=== PATIENT | female | born 1985 | race Caucasian/White ===

== ENCOUNTER → 2017-12-17 | Outpatient (CLI) | payer BC ==
--- NOTE | 2017-12-17 15:58 | US ---
EXAMINATION TYPE: US abdomen complete DATE OF EXAM: 12/17/2017 COMPARISON: CT 2013 CLINICAL HISTORY: R10.84 abdominal pain K80 Cholelithiasis. Intermittent RUQ pain and nausea x 1 yea r, gotten worse in past 2 days, history of cholelithiasis EXAM MEASUREMENTS: Liver Length: 12.3 cm Gallbladder Wall: 0.2 cm CBD: 0.8 cm Spleen: 7.8 cm Right Kidney: 9.6 x 5.0 x 5.2 cm Left Kidney: 10.1 x 4.8 x 4.6 cm Pancreas: obscured by overlying midline bowel gas Liver: wnl Gallbladder: appears to be 2 large echogenic shadowing foci with larger one measuring 2.2cm, wall me asures wnl Evidence for sonographic Ludwig's sign: yes CBD: dilated at 0.8cm Spleen: visualized portions wnl, limited by rib shadowing and overlying bowel gas Right Kidney: no hydro or masses seen Left Kidney: no hydro or masses seen Upper IVC: wnl Abd Aorta: visualized portions wnl, limited by overlying midline bowel gas Kidneys show normal cortical medullary differentiation. There is no ascites. IMPRESSION: Cholelithiasis. Dilated common bile duct. Suggest gastroenterology for surgical consult. Limited exam. A Yellow level critical message alert has been initiated for Ofelia Wu MD via the [facility] Critical Results System on 12/17/2017 3:56 PM. This message alert has been sent to Ofelia ken MD via the preferences provided by the clinician for the receipt of Radiology Critical Findings. Message ID [id number].
== END | disposition home or self-care (01) ==
LOC: RADUSWWP 14:31
PROVIDERS: ATTEND Family Medicine
DX: K80.20 Calculus of gallbladder without cholecystitis without obstruction (principal); K83.8 Other specified diseases of biliary tract
CPT/HCPCS: 76700

== ENCOUNTER → 2017-12-20 | Outpatient (CLI) | payer BC ==
[2017-12-20 11:13] LABS: Basophils % (A) 0 %; Eosinophils # (A) 0.4 k/uL (0-0.7); Eosinophils % (A) 5 %; HGB 14.5 gm/dL (11.4-16.0); Lymphocytes # (A) 2.5 k/uL (1.0-4.8); Lymphocytes % (A) 35 %; MCH 29.9 pg (25.0-35.0); MCHC 34.5 g/dL (31.0-37.0); MCV 86.8 fL (80.0-100.0); Mean Platelet Volume 6.6; Monocytes # (A) 0.3 k/uL (0-1.0); Monocytes % (A) 5 %; Neutrophils # (A) 3.9 k/uL (1.3-7.7); Neutrophils % (A) 53 %; Platelet Count 252 k/uL (150-450); RBC 4.84 m/uL (3.80-5.40); WBC 7.3 k/uL (3.8-10.6)
[2017-12-20 15:21] LABS: Albumin 3.8 g/dL (3.5-5.0); Bilirubin, Delta 0.2 mg/dL (0.0-0.2); Bilirubin,Unconjugated 0.1 mg/dL (0.0-1.1); Total Bilirubin 0.3 mg/dL (0.2-1.3); Total Protein 6.7 g/dL (6.3-8.2)
== END | disposition home or self-care (01) ==
LOC: LABPAT 10:33
PROVIDERS: ATTEND Surgery
DX: Z01.812 Encounter for preprocedural laboratory examination (principal); K80.20 Calculus of gallbladder without cholecystitis without obstruction
CPT/HCPCS: 36415; 80076; 82150; 83690; 85025

== ENCOUNTER 2017-12-31 07:50 | Day surgery (SDC) | payer BC ==
[~2017-12-31 07:50] MED LIST: DEXAMETHASONE SOD PHOSPHATE 10 MG/ML 1 ML VIAL IV ONE; LACTATED RINGERS 1,000 ML IV SCH; MIDAZOLAM 2 MG/2 ML VIAL IV PRN; MORPHINE SULFATE 4MG/4ML SYRG IV PRN; ONDANSETRON 4 MG/2 ML VIAL IVP ONE; ceFAZolin IN SWFI 2 GM/20 ML SYRINGE IVP ONE
[2017-12-31 08:22] VITALS: TEMP 97.6
[2017-12-31] MEDS ORDERED: CLINDAMYCIN 600 MG in DEXTROSE 5% IN WATER 50 ML IVPB STA ×2 (08:37)
[2017-12-31] MEDS ORDERED: LIDOCAINE 1% 20 ML VIAL (10MG/ML) FOR IV START INTRADERMA ONE (08:48)
[2017-12-31] MEDS ORDERED: HEPARIN SODIUM,PORCINE 5,000 UNIT/ML 1 ML VIAL SQ ONE ×2 (09:00→09:02)
--- NOTE | 2017-12-31 09:07 | P.PN ---
Progress Note - Text Progress Note Date: 12/31/17 The patient is a 32-year-old white female with cholelithiasis and symptomatic right upper quadrant abdominal discomfort, believed to be related to symptomatic cholecystitis. The patient is noted on an ultrasound to have a dilated common bile duct 8 mm. This has been reviewed with the radiologist. Additionally the patient was noted to have liver function studies which are all within normal limits including the alkaline phosphatase at 40. The cases been discussed with gastroenterology who stated that we should proceed with a laparoscopic possible open cholecystectomy. They do not recommend ERCP or MRCP. Secondary to the dilated common bile duct if the patient is symptomatic postoperatively we will repeat liver function studies in the postoperative period, should she have any symptoms she will be referred to gastroenterology at that time. Again at this time although the duct is dilated recommendation as per gastroenterology is to proceed with laparoscopic possible open cholecystectomy. They're not concerned about obtaining CA-19-9, no IV concerned about repeating liver function studies and less the patient is symptomatic. Additionally we've talked about the need for a lipase or amylase to evaluate for pancreatitis and they do not feel this is necessary at this time. We will therefore proceed with laparoscopic possible open cholecystectomy. The patient understands the risks and benefits and wishes to proceed.
[2017-12-31] MEDS ORDERED: fentaNYL (PF) 50 MCG/ML 2 ML AMP ONE (09:11)
[2017-12-31] MEDS ORDERED: MIDAZOLAM 2 MG/2 ML VIAL ONE (09:11)
[2017-12-31] MEDS ORDERED: MEPERIDINE 50 MG/ML SYRINGE ONE (09:11)
[2017-12-31] MEDS ORDERED: PROPOFOL 10 MG/ML 20 ML VIAL IV ONE (09:11)
[2017-12-31] MEDS ORDERED: PHENYLEPHRINE-0.9% NACL SYG 1 MG/10 ML SYRINGE ONE (09:11)
[2017-12-31] MEDS ORDERED: ROCURONIUM BROMIDE 10 MG/ML 10 ML VIAL IV ONE (09:11)
[2017-12-31] MEDS ORDERED: SUCCINYLCHOLINE CHLORIDE 100 MG/5 ML SYR IV ONE (09:11)
[2017-12-31] MEDS ORDERED: NEOSTIGMINE 1 MG/ML 10 ML VIAL ONE (09:11)
[2017-12-31] MEDS ORDERED: GLYCOPYRROLATE 0.2 MG/ML 2 ML VIAL ONE (09:11)
[2017-12-31] MEDS ORDERED: LIDOCAINE 1% INJ 10MG/ML (20 ML MDV) ONE (09:11)
[2017-12-31] MEDS ORDERED: SODIUM CHLORIDE 0.9% 50 ML with CLINDAMYCIN 600 MG IV ONE ×2 (09:19)
[2017-12-31] MEDS ORDERED: LIDOCAINE 1% (PF) 10 MG/ML (30 ML SDV) SQ ONE ×2 (09:46)
[2017-12-31] MEDS ORDERED: LACTATED RINGERS 1,000 ML IV ONE (10:24)
--- NOTE | 2017-12-31 10:54 | P.OP ---
Date of Procedure: 12/31/17 Preoperative Diagnosis: Symptomatic cholelithiasis Postoperative Diagnosis: Same Procedure(s) Performed: Laparoscopic cholecystectomy Anesthesia: AGUILAR Surgeon: Violet Hylton Estimated Blood Loss (ml): 10 IV fluids (ml): 900 Pathology: other (gallbladder) Condition: stable Disposition: PACU Indications for Procedure: Symptomatic cholelithiasis Operative Findings: Stones in the gallbladder gallbladder ptotic and elongated Description of Procedure: The patient is a 32-year-old white female with symptomatic cholelithiasis. She was noted on ultrasound to have a dilated common bile duct. Preoperative this was reviewed with radiology as well as gastroenterology. She was also noted to have normal liver function studies. Gastroenterology 69 would not recommend an MRCP or ERCP if her liver function studies were normal. At this time I recommend laparoscopic possible open cholecystectomy patient understands risks and benefits and wishes to proceed. Patient was taken to the operating room and following induction of general anesthesia the abdomen was prepped and draped in a sterile fashion. An infraumbilical incision was made and carried down to the fascia the intra- abdominal wall. This was elevated and opened under direct visualization. The balloon trocar was placed in the abdomen was insufflated. The patient was placed in the head up rotated position and 2 #5 ports were placed in the right upper quadrant. Through the #5 ports the gallbladder was retracted. The gallbladder was noted to be very ptotic and have adhesions to the gallbladder particularly at the area of the neck. A #10 port was placed in the left upper quadrant through which dissection was performed. The adhesions were carefully dissected down using blunt dissection. Additionally dissection with electrocautery was used to dissect these adhesions from the gallbladder. The cystic duct was identified. There was noted to be a dilated but there was a stone at the orifice of the cystic duct. The duct was only structure entering into the gallbladder and the gallbladder was rotated posteriorly such that this could be confirmed. After careful dissection in this area the cystic artery was also identified. The cystic duct was stapled and divided as was the cystic artery. The gallbladder was taken down from its peritoneal attachments to the liver bed using the electrocautery device. Following this it was placed in a Pleatman sac and brought out through the #10 port site. The abdomen was well irrigated. No evidence of any bleeding was identified and no bleeding was noted on the liver bed. All ric appeared to be intact. Following this the #10 port site in the left upper quadrant was removed and a Paul Bass was used to place several sutures. This area was closed using Vicryl suture. Following this the other 5 ports were removed under direct visualization and the abdomen was desufflated. No bleeding was noted at the #5 port sites. The infraumbilical port was removed and the fascia was closed using an 0 Vicryl suture. Skin incisions were closed using 4-0 Monocryl. The patient tolerated the procedure in stable condition. All instrument and sponge counts were correct at the end of the case.
--- NOTE | 2017-12-31 10:55 | P.DS ---
Providers Attending physician: Violet Hylton Primary care physician: Ofelia Wu Plan - Discharge Summary New Discharge Prescriptions: No Action Cetirizine HCl [Zyrtec] 10 mg PO DAILY ALPRAZolam [Xanax] 0.5 mg PO DAILY PRN PRN Reason: Anxiety Medroxyprogesterone Acetate [Depo-Provera] 150 mg IM ONCE Discharge Medication List ALPRAZolam [Xanax] 0.5 mg PO DAILY PRN 12/24/17 [History] Cetirizine HCl [Zyrtec] 10 mg PO DAILY 12/24/17 [History] Medroxyprogesterone Acetate [Depo-Provera] 150 mg IM ONCE 12/24/17 [History] Follow up Appointment(s)/Referral(s): Violet Hylton MD [STAFF PHYSICIAN] - 1 Week Activity/Diet/Wound Care/Special Instructions: Patient may shower after [address] Sy Discharge Disposition: HOME SELF-CARE
[2017-12-31 11:17] VITALS: RESP 16
[2017-12-31] MEDS: MEPERIDINE 50 MG/ML SYRINGE IVP ONE ×2 (11:35→11:50)
[2017-12-31] MEDS ORDERED: HYDROcodone/APAP 5-325MG 1 EACH TAB PO ONE (12:36)
[2017-12-31 12:55] VITALS: BP 104/43; PULSE 66
== END 2017-12-31 13:13 | disposition home or self-care (01) ==
LOC: OR 07:50
PROVIDERS: ATTEND Surgery
DX: K80.10 Calculus of gallbladder with chronic cholecystitis without obstruction (principal); K82.8 Other specified diseases of gallbladder; F41.9 Anxiety disorder, unspecified; F32.9 Major depressive disorder, single episode, unspecified; K21.9 Gastro-esophageal reflux disease without esophagitis; N91.2 Amenorrhea, unspecified; F17.210 Nicotine dependence, cigarettes, uncomplicated; Z88.0 Allergy status to penicillin; Z79.890 Hormone replacement therapy; Z79.899 Other long term (current) drug therapy
CPT/HCPCS: 47562; 81025; 88304; J2250; J1644; J1100; J2710; J2175; J2405; J2001 ×2; J3010; J2370; J0330; J2704

== ENCOUNTER 2017-12-31 21:11 | Emergency (ER) | payer BC ==
--- NOTE | 2017-12-31 22:15 | XR ---
EXAMINATION TYPE: XR KUB DATE OF EXAM: 12/31/2017 COMPARISON: 11/02/2013 HISTORY: Postop cholecystectomy. Abdominal pain. TECHNIQUE: 2 views FINDINGS: There are clips from cholecystectomy. Bowel gas pattern is normal. There is no sign of inte stinal obstruction or pneumoperitoneum. There are no pathologic calcifications over the kidneys. Lung bases are clear. IMPRESSION: Nonacute abdomen.
[2017-12-31 22:28] VITALS: TEMP 99
[2017-12-31 22:34] LABS: Basophils % (A) 0 %; Eosinophils # (A) 0.1 k/uL (0-0.7); Eosinophils % (A) 0 %; HCT 41.1 % (34.0-46.0); HGB 14.3 gm/dL (11.4-16.0); Lymphocytes # (A) 1.5 k/uL (1.0-4.8); Lymphocytes % (A) 11 %; MCH 29.4 pg (25.0-35.0); MCHC 34.8 g/dL (31.0-37.0); MCV 84.5 fL (80.0-100.0); Mean Platelet Volume 6.5; Monocytes # (A) 0.5 k/uL (0-1.0); Monocytes % (A) 3 %; Neutrophils # (A) 11.5 k/uL (1.3-7.7); Neutrophils % (A) 84 %; Platelet Count 259 k/uL (150-450); RBC 4.87 m/uL (3.80-5.40); RDW 11.6 % (11.5-15.5); WBC 13.6 k/uL (3.8-10.6)
[2017-12-31] MEDS ORDERED: SODIUM CHLORIDE 0.9% 2,000 ML IV ONE (22:34)
[2017-12-31] MEDS ORDERED: ONDANSETRON 4 MG/2 ML VIAL IVP STA (22:34)
[2017-12-31 22:48] LABS: ALT 45 U/L (9-52); AST 39 U/L (14-36); Albumin 3.9 g/dL (3.5-5.0); Alkaline Phosphatase 42 U/L (38-126); Amylase 70 U/L (30-110); Anion Gap 14 mmol/L; Blood Urea Nitrogen 7 mg/dL (7-17); Calcium 9.6 mg/dL (8.4-10.2); Carbon Dioxide 22 mmol/L (22-30); Chloride 102 mmol/L (98-107); Glucose 105 mg/dL (74-99); Lipase 125 U/L (23-300); Potassium 4.5 mmol/L (3.5-5.1); Sodium 138 mmol/L (137-145); Total Bilirubin 0.5 mg/dL (0.2-1.3); Total Protein 6.9 g/dL (6.3-8.2)
[2017-12-31] MEDS ORDERED: MORPHINE SULFATE 4MG/4ML SYRG IVP ONE (22:51)
--- NOTE | 2017-12-31 22:54 | ED ---
Abdominal Pain HPI - General Chief Complaint: Abdominal Pain Stated Complaint: post op gallbladder/vomiting & fever Time Seen by Provider: 12/31/17 22:16 Source: patient, RN notes reviewed Mode of arrival: wheelchair Limitations: no limitations - History of Present Illness Initial Comments: 32-year-old female presents emergency Department with chief complaint of nausea vomiting abdominal pain. Patient states she had a laproscopic cholecystectomy this morning by Dr. Yossi Castillo. Patient states she was instructed to return if she develops fever nausea vomiting. Patient states that she felt that she had a fever earlier related to court toppled 101. Patient has not taken any Tylenol or Motrin at this point just cannot keep anything down. Patient states that she has been vomiting and vomited several times. She denies any chest pain , shortness breath. She does complain of a headache now she states she has migraines. Patient denies any bleeding from incision sites. Denies any dysuria. - Related Data Home Medications Medication Instructions Recorded Confirmed ALPRAZolam [Xanax] 0.5 mg PO DAILY PRN 12/24/17 12/31/17 Cetirizine HCl [Zyrtec] 10 mg PO DAILY 12/24/17 12/31/17 Medroxyprogesterone Acetate 150 mg IM Q84D 12/24/17 12/31/17 [Depo-Provera] HYDROcodone/APAP 5-325MG [[place] 1 - 2 tab PO Q4H PRN 12/31/17 12/31/17 5-325] Previous Rx's Medication Instructions Recorded Ondansetron Odt [Zofran Odt] 4 mg PO Q8HR PRN #10 tab 12/31/17 Allergies Allergy/AdvReac Type Severity Reaction Status Date / Time Penicillins Allergy Rash/Hives Verified 12/31/17 22:48 Review of Systems ROS Statement: Those systems with pertinent positive or pertinent negative responses have been documented in the HPI. ROS Other: All systems not noted in ROS Statement are negative. Past Medical History Past Medical History: GERD/Reflux History of Any Multi-Drug Resistant Organisms: None Reported Past Surgical History: Section, Cholecystectomy Past Anesthesia/Blood Transfusion Reactions: Family History of Problems w/ Anesthesia Additional Past Anesthesia/Blood Transfusion Reaction / Comment(s): grandmother had issues with anesthesia pt unaware of what occured Past Psychological History: Anxiety Smoking Status: Current every day smoker Past Alcohol Use History: None Reported Past Drug Use History: None Reported - Past Family History Mother Family Medical History: No Reported History General Exam Limitations: no limitations General appearance: alert, in no apparent distress Head exam: Present: atraumatic, normocephalic, normal inspection Eye exam: Present: normal appearance, PERRL, EOMI. Absent: scleral icterus, conjunctival injection, periorbital swelling ENT exam: Present: normal exam, normal oropharynx, mucous membranes moist Neck exam: Present: normal inspection. Absent: tenderness, meningismus, lymphadenopathy Respiratory exam: Present: normal lung sounds bilaterally. Absent: respiratory distress, wheezes, rales, rhonchi, stridor Cardiovascular Exam: Present: regular rate, normal rhythm, normal heart sounds. Absent: systolic murmur, diastolic murmur, rubs, gallop, clicks GI/Abdominal exam: Present: soft, tenderness, normal bowel sounds, other (No bleeding noted from incision sites). Absent: distended, guarding, rebound, rigid Back exam: Absent: CVA tenderness (R), CVA tenderness (L) Neurological exam: Present: alert, oriented X3, CN II-XII intact, reflexes normal. Absent: motor sensory deficit Skin exam: Present: warm, dry, intact, normal color. Absent: rash Course Vital Signs 12/31/17 12/31/17 12/31/17 21:29 22:25 23:02 Temperature 97.7 F 99.0 F Pulse Rate 78 61 Respiratory 15 19 Rate Blood Pressure 114/61 122/72 O2 Sat by Pulse 98 97 Oximetry - Reevaluation(s) Reevaluation #1: 12/31/17 23:57 Patient was reevaluated states she feels much better headache is resolved nausea vomiting has resolved. She has tolerated ice chips. Medical Decision Making - Medical Decision Making 32-year-old female presents primarily for nausea vomiting postop. Patient lab work essentially unremarkable she feels better after IV fluids and antiemetics. This most likely is related to medications or surgery. She'll be discharged on Zofran return parameters were discussed. - Lab Data Result diagrams: 12/31/17 22:20 12/31/17 22:20 Lab Results 12/31/17 12/31/17 12/31/17 Range/Units 22:20 22:20 22:20 WBC 13.6 H (3.8-10.6) k/uL RBC 4.87 (3.80-5.40) m/uL Hgb 14.3 (11.4-16.0) gm/dL Hct 41.1 (34.0-46.0) % MCV 84.5 (80.0-100.0) fL MCH 29.4 (25.0-35.0) pg MCHC 34.8 (31.0-37.0) g/dL RDW 11.6 (11.5-15.5) % Plt Count 259 (150-450) k/uL Neutrophils % 84 % Lymphocytes % 11 % Monocytes % 3 % Eosinophils % 0 % Basophils % 0 % Neutrophils # 11.5 H (1.3-7.7) k/uL Lymphocytes # 1.5 (1.0-4.8) k/uL Monocytes # 0.5 (0-1.0) k/uL Eosinophils # 0.1 (0-0.7) k/uL Basophils # 0.0 (0-0.2) k/uL Sodium 138 (137-145) mmol/L Potassium 4.5 (3.5-5.1) mmol/L Chloride 102 (98-107) mmol/L Carbon Dioxide 22 (22-30) mmol/L Anion Gap 14 mmol/L BUN 7 (7-17) mg/dL Creatinine 0.80 (0.52-1.04) mg/dL Est GFR (CKD-EPI)AfAm >90 (>60 ml/min/1.73 sqM) Est GFR (CKD-EPI)NonAf >90 (>60 ml/min/1.73 sqM) Glucose 105 H (74-99) mg/dL Plasma Lactic Acid Cristian 0.9 (0.7-2.0) mmol/L Calcium 9.6 (8.4-10.2) mg/dL Total Bilirubin 0.5 (0.2-1.3) mg/dL AST 39 H (14-36) U/L ALT 45 (9-52) U/L Alkaline Phosphatase 42 (38-126) U/L Total Protein 6.9 (6.3-8.2) g/dL Albumin 3.9 (3.5-5.0) g/dL Amylase 70 (30-110) U/L Lipase 125 (23-300) U/L Urine Color Urine Appearance (Clear) Urine pH (5.0-8.0) Ur Specific Gray (1.001-1.035) Urine Protein (Negative) Urine Glucose (UA) (Negative) Urine Ketones (Negative) Urine Blood (Negative) Urine Nitrite (Negative) Urine Bilirubin (Negative) Urine Urobilinogen (<2.0) mg/dL Ur Leukocyte Esterase (Negative) Urine RBC (0-5) /hpf Urine WBC (0-5) /hpf Ur Squamous Epith Cells (0-4) /hpf Urine Bacteria (None) /hpf Urine Mucus (None) /hpf 12/31/17 Range/Units 22:32 WBC (3.8-10.6) k/uL RBC (3.80-5.40) m/uL Hgb (11.4-16.0) gm/dL Hct (34.0-46.0) % MCV (80.0-100.0) fL MCH (25.0-35.0) pg MCHC (31.0-37.0) g/dL RDW (11.5-15.5) % Plt Count (150-450) k/uL Neutrophils % % Lymphocytes % % Monocytes % % Eosinophils % % Basophils % % Neutrophils # (1.3-7.7) k/uL Lymphocytes # (1.0-4.8) k/uL Monocytes # (0-1.0) k/uL Eosinophils # (0-0.7) k/uL Basophils # (0-0.2) k/uL Sodium (137-145) mmol/L Potassium (3.5-5.1) mmol/L Chloride (98-107) mmol/L Carbon Dioxide (22-30) mmol/L Anion Gap mmol/L BUN (7-17) mg/dL Creatinine (0.52-1.04) mg/dL Est GFR (CKD-EPI)AfAm (>60 ml/min/1.73 sqM) Est GFR (CKD-EPI)NonAf (>60 ml/min/1.73 sqM) Glucose (74-99) mg/dL Plasma Lactic Acid Cristian (0.7-2.0) mmol/L Calcium (8.4-10.2) mg/dL Total Bilirubin (0.2-1.3) mg/dL AST (14-36) U/L ALT (9-52) U/L Alkaline Phosphatase (38-126) U/L Total Protein (6.3-8.2) g/dL Albumin (3.5-5.0) g/dL Amylase (30-110) U/L Lipase (23-300) U/L Urine Color Light Yellow Urine Appearance Cloudy H (Clear) Urine pH 6.5 (5.0-8.0) Ur Specific Gray 1.007 (1.001-1.035) Urine Protein Negative (Negative) Urine Glucose (UA) Negative (Negative) Urine Ketones Negative (Negative) Urine Blood Negative (Negative) Urine Nitrite Negative (Negative) Urine Bilirubin Negative (Negative) Urine Urobilinogen <2.0 (<2.0) mg/dL Ur Leukocyte Esterase Large H (Negative) Urine RBC 3 (0-5) /hpf Urine WBC 6 H (0-5) /hpf Ur Squamous Epith Cells 7 H (0-4) /hpf Urine Bacteria Many H (None) /hpf Urine Mucus Few H (None) /hpf Disposition Clinical Impression: Postoperative nausea and vomiting Disposition: HOME SELF-CARE Condition: Stable Instructions: Acute Nausea and Vomiting (ED) Additional Instructions: Please return to the Emergency Department if symptoms worsen or any other concerns. Prescriptions: Ondansetron Odt [Zofran Odt] 4 mg PO Q8HR PRN #10 tab PRN Reason: Nausea Referrals: Ofelia Wu MD [Primary Care Provider] - 1-2 days Time of Disposition: 23:59
[2017-12-31 23:13] LABS: Appearance,Urine Cloudy (Clear); Bacteria,Urine Many /hpf; Bilirubin,Urine Negative (Negative); Blood,Urine Negative (Negative); Color,Urine Light Yellow; Glucose,Urine (UA) Negative (Negative); Ketones,Urine Negative (Negative); Leukocyte Esterase,Urine Large (Negative); Mucus,Urine Few /hpf; Nitrite,Urine Negative (Negative); PH, Urine 6.5 (5.0-8.0); Protein,Urine Negative (Negative); RBC,Urine 3 /hpf (0-5); Specific Gravity,Urine 1.007 (1.001-1.035); Squamous Epithelial Cell,Urine 7 /hpf (0-4); Urobilinogen,Urine <2.0 mg/dL (<2.0); WBC,Urine 6 /hpf (0-5)
[2017-12-31] MEDS ORDERED: ONDANSETRON 4 MG ODT STARTER PACK 2 TAB BTL PO STA (23:58)
[2018-01-01 00:34] VITALS: BP 107/58; PULSE 78; RESP 18
== END 2018-01-01 00:36 | disposition home or self-care (01) ==
LOC: EC 21:11
DX: R11.2 Nausea with vomiting, unspecified (principal); R10.9 Unspecified abdominal pain; R51 Headache; R50.9 Fever, unspecified; F17.200 Nicotine dependence, unspecified, uncomplicated; Z88.0 Allergy status to penicillin; Z79.899 Other long term (current) drug therapy; Z90.49 Acquired absence of other specified parts of digestive tract; Z98.890 Other specified postprocedural states
CPT/HCPCS: 36415; 80053; 82150; 83605; 83690; 85025; 81001; 87040; 74018; 99284; 96374; 96375; 96361 ×2; J2405; S0119; J2270

== ENCOUNTER → 2019-05-13 | Outpatient (CLI) | payer BC ==
--- NOTE | 2019-05-13 15:54 | US ---
EXAMINATION TYPE: Transabdominal DATE OF EXAM: 05/13/2019 3:16 PM COMPARISON: NONE CLINICAL HISTORY: Absent Heart Tones O76. Absent heart tones at the office EXAM PERFORMED: Transvaginal (TV) and Transabdominal (TA) EXAM MEASUREMENTS: GESTATIONAL AGE / DATING Physician Established: Not yet established Dates by LMP: (9 weeks/5 days) EDC: 12/11/2019 Dates by First Scan: No previous this is first scan Dates by Current Scan for: (6 weeks/1 days) EDC: 01/05/2020 MATERNAL ANATOMY Uterus: 9.3 x 5.4 x 6.3 cm Right Ovary: 3.3 x 2.1 x 1.7 cm Left Ovary: 2.3 x 1.3 x 1.6 cm Post CDS / Adnexa: wnl Presence of free fluid: Small amount of free fluid adjacent to right ovary Presence of corpus luteal cyst: No Presence of subchorionic bleed: Yes, measuring 2.5 x 1.2 x 1.9 cm GESTATION / SURVEY CRL: 0.5 cm (6 weeks/1 days) MSD: 2.0 cm (6 weeks/6 days) Yolk Sac (normal less than 6mm): 0.1 cm IUP: Demise Date of LMP: 03/06/2019 Beta HcG (if available): Not available at this time Suspected demise, pole measuring 6 weeks/1 day Yolk sac is present. pole is identified. No cardiac activity could be demonstrated. Correlation with beta-hCG is recommended. Follow-up can be performed. IMPRESSION: 1. Intrauterine demise. Correlation with beta-hCG and follow-up ultrasound can be performed for confirmation.
== END | disposition home or self-care (01) ==
LOC: RADUSWWP 14:50
PROVIDERS: ATTEND Obstetrics & Gynecology
DX: O36.4XX1 Maternal care for intrauterine death, fetus 1 (principal)
CPT/HCPCS: 76801; 76817

== ENCOUNTER → 2019-05-20 | Outpatient (CLI) | payer BC ==
[2019-05-20 10:51] LABS: Basophils # (A) 0.1 k/uL (0-0.2); Basophils % (A) 1 %; Eosinophils # (A) 0.2 k/uL (0-0.7); Eosinophils % (A) 3 %; HCT 40.9 % (34.0-46.0); HGB 13.7 gm/dL (11.4-16.0); Lymphocytes # (A) 2.7 k/uL (1.0-4.8); Lymphocytes % (A) 39 %; MCH 29.7 pg (25.0-35.0); MCHC 33.5 g/dL (31.0-37.0); MCV 88.4 fL (80.0-100.0); Mean Platelet Volume 7.1; Monocytes # (A) 0.4 k/uL (0-1.0); Monocytes % (A) 5 %; Neutrophils # (A) 3.5 k/uL (1.3-7.7); Neutrophils % (A) 51 %; Platelet Count 269 k/uL (150-450); RBC 4.63 m/uL (3.80-5.40); RDW 13.8 % (11.5-15.5); WBC 6.9 k/uL (3.8-10.6)
== END | disposition home or self-care (01) ==
LOC: LABPAT 10:24
PROVIDERS: ATTEND Obstetrics & Gynecology
DX: Z01.812 Encounter for preprocedural laboratory examination (principal)
CPT/HCPCS: 36415; 85025; 86850; 86900; 86901

== ENCOUNTER 2019-05-21 07:22 | Day surgery (SDC) | payer BC ==
--- NOTE | 2019-05-20 12:40 | P.HPOB ---
History of Present Illness H&P Date: 05/20/19 Chief Complaint: Missed AB Figueroa is a 34-year-old female who has a 9 week demise. She was supposed to be 9 weeks, however ultrasound revealed 6 week demise on ultrasound. She had been following her betas and they had been declining, however she is significant concern about the amount of bleeding and how heavy it might be as well as the cramping and she would prefer a suction D&C. Risks/benefits/alternatives were reviewed with the patient in detail and all questions were answered for her prior to proceeding to the operative room. Risks did include but were not limited to bleeding and infection as well as possible perforation possible need further surgeries as well as potential theoretically to make it more difficult for her to get in the future. She is scheduled for suction D&C. Past Medical History Past Medical History: GERD/Reflux Additional Past Medical History / Comment(s): SEASONAL ALLERGIES, LMP February- STATES VAGINAL BLEEDING STARTED YESTERDAY. History of Any Multi-Drug Resistant Organisms: None Reported Past Surgical History: Section, Cholecystectomy Past Anesthesia/Blood Transfusion Reactions: Postoperative Nausea & Vomiting (PONV) Additional Past Anesthesia/Blood Transfusion Reaction / Comment(s): UNCONTROLLABLE VOMITING AFTER GALL BLADDER SURGERY. Past Psychological History: Anxiety Smoking Status: Current every day smoker Past Alcohol Use History: None Reported, Occasional Additional Past Alcohol Use History / Comment(s): SMOKES 1/2 TO 1 PPD., STARTED SMOKING APPROX. AGE 17. Past Drug Use History: None Reported - Past Family History Mother Family Medical History: No Reported History Medications and Allergies Home Medications Medication Instructions Recorded Confirmed Type Cetirizine HCl [Zyrtec] 10 mg PO DAILY 12/24/17 05/20/19 History ALPRAZolam [Xanax] 0.25 mg PO BID PRN 05/20/19 05/20/19 History Allergies Allergy/AdvReac Type Severity Reaction Status Date / Time Penicillins Allergy Rash/Hives Verified 05/20/19 10:49 Exam Osteopathic Statement: *. No significant issues noted on an osteopathic structural exam other than those noted in the History and Physical/Consult. Intake and Output 05/19/19 05/20/19 05/20/19 22:59 06:59 14:59 Other: Weight 79.379 kg - OBG Physical Exam Breast: both: normal (no masses) Abdomen: bowel sounds normal, no diffuse tenderness, no bruit present, no guarding noted, no hepatomegaly, no splenomegaly, no mass Vulva: both: normal Vagina: normal moisture, no discharge Cervix: no lesion, no discharge Uterus: normal size, normal contour Adnexa: both: normal Anus/Rectum: normal perianal skin, no rectal mass, no hemorrhoids, heme negative
[~2019-05-21 07:22] MED LIST changes: -DEXAMETHASONE SOD PHOSPHATE 10 MG/ML 1 ML VIAL IV ONE; -LACTATED RINGERS 1,000 ML IV SCH; -MIDAZOLAM 2 MG/2 ML VIAL IV PRN; -MORPHINE SULFATE 4MG/4ML SYRG IV PRN; -ONDANSETRON 4 MG/2 ML VIAL IVP ONE; +Pre Op ABX Message 1 EACH MISC MISCELLANE ONE; -ceFAZolin IN SWFI 2 GM/20 ML SYRINGE IVP ONE
[2019-05-21] MEDS ORDERED: LACTATED RINGERS 1,000 ML IV ONE (07:58)
[2019-05-21] MEDS ORDERED: LIDOCAINE 1% 20 ML VIAL (10MG/ML) FOR IV START INTRADERMA ONE (07:59)
[2019-05-21] MEDS ORDERED: DEXAMETHASONE SOD PHOS (MDV) 100 MG/10 ML VIAL IVP ONE (08:30)
[2019-05-21] MEDS ORDERED: ONDANSETRON 4 MG/2 ML VIAL IVP ONE (08:30)
[2019-05-21] MEDS ORDERED: SCOPOLAMINE 1.5MG/72HR PATCH TRANSDERM ONE (08:31)
[2019-05-21] MEDS ORDERED: OXYTOCIN 10 UNIT/ML 1 ML VIAL ONE (08:36)
[2019-05-21] MEDS ORDERED: PROPOFOL 10 MG/ML 20 ML VIAL IV ONE (08:36)
[2019-05-21] MEDS ORDERED: diphenhydrAMINE 50 MG/ML 1 ML VIAL ONE (08:36)
[2019-05-21] MEDS ORDERED: MIDAZOLAM 2 MG/2 ML VIAL ONE (08:36)
[2019-05-21] MEDS ORDERED: DEXAMETHASONE SOD PHOS (MDV) 100 MG/10 ML VIAL ONE (08:36)
[2019-05-21] MEDS ORDERED: ONDANSETRON 4 MG/2 ML VIAL ONE (08:36)
[2019-05-21] MEDS ORDERED: fentaNYL (PF) 50 MCG/ML 2 ML AMP ONE (08:36)
[2019-05-21 09:25] VITALS: TEMP 97.6
[2019-05-21] MEDS ORDERED: HYDROmorphone 1 MG/ML 1 ML SYRINGE IVP ONE (10:02)
[2019-05-21] MEDS ORDERED: Rhogam IMMUNE GLOBULIN 1,500 UNIT/1 ML IM ONE (10:06)
[2019-05-21 11:34] VITALS: RESP 17
[2019-05-21 11:45] VITALS: BP 103/70; PULSE 70
--- NOTE | 2019-05-21 16:50 | P.OP ---
Date of Procedure: 05/21/19 Preoperative Diagnosis: Missed AB Postoperative Diagnosis: Same Procedure(s) Performed: Suction D&C Anesthesia: AIDAA Surgeon: William Perry Estimated Blood Loss (ml): 50 Pathology: other (Products of conception) Condition: stable Disposition: same day Operative Findings: Pathology pending Description of Procedure: Patient was taken to the operating suite where a general anesthetic was found be adequate. She was prepped and draped in the normal sterile fashion placed in dorsal lithotomy position. Initially a weighted speculum was inserted into the vagina and the anterior lip of cervix was identified and grasped with a Allis clamp. Uterus was then sounded to 9 cm and cervix was dilated. 9 suction tip curette was inserted and rotating clockwise motion suction was applied tissue was extruded with 2 passes initially and then gentle sharp curettings of the endometrium were obtained to verify removal of all tissue and one more pass with the suction tip curette was done all tissues collected and sent to pathology for evaluation. Once this was accomplished, all instruments removed. Sponge, lap, needle counts were all correct 2. Patient was then taken to the recovery room in stable and satisfactory condition. Plan - Discharge Summary New Discharge Prescriptions: New Ibuprofen [Motrin] 600 mg PO Q6HR PRN #30 tab PRN Reason: Pain No Action Cetirizine HCl [Zyrtec] 10 mg PO DAILY ALPRAZolam [Xanax] 0.25 mg PO BID PRN PRN Reason: Anxiety Discharge Medication List Cetirizine HCl [Zyrtec] 10 mg PO DAILY 12/24/17 [History] ALPRAZolam [Xanax] 0.25 mg PO BID PRN 05/20/19 [History] Ibuprofen [Motrin] 600 mg PO Q6HR PRN #30 tab 05/21/19 [Rx] Follow up Appointment(s)/Referral(s): William Perry DO [Doctor of Osteopathic Medicine] - 1 Week Patient Instructions/Handouts: *Surgery [facility] - Dilation & Curettage Home Instructions, *[facility] - (Anesthesia) Discharge Instructions Outpatient Surgery, *Surgery [facility] - Scopalamine Patch Instructions Activity/Diet/Wound Care/Special Instructions: PATIENT TO CALL TO SCHEDULE HER FOLLOW UP WITH DR. PERRY YOU RECEIVED RHO-SAPNA INTRAMUSCULAR INJECTION TODAY - PLEASE CARRY Rho-SAPNA IDENTIFICATION CARD WITH YOU AND PROVIDE YOUR DR'S OFFICE WITH A COPY Discharge Disposition: HOME SELF-CARE
== END 2019-05-21 11:45 | disposition home or self-care (01) ==
LOC: OR 07:22
PROVIDERS: ATTEND Obstetrics & Gynecology
DX: O02.1 Missed abortion (principal); K21.9 Gastro-esophageal reflux disease without esophagitis; J30.2 Other seasonal allergic rhinitis; F41.9 Anxiety disorder, unspecified; F17.210 Nicotine dependence, cigarettes, uncomplicated; Z88.0 Allergy status to penicillin; Z79.899 Other long term (current) drug therapy; Z90.49 Acquired absence of other specified parts of digestive tract
CPT/HCPCS: 59820; 88305; J2791; J2250; J1200; J2590; J2405; J3010; J1170; J1100; J2704; 86850; 86900; 86901

== ENCOUNTER 2020-03-11 12:52 | Outpatient (CLI) | payer BC ==
[2020-03-11 14:01] LABS: Appearance,Urine Clear (Clear); Bilirubin,Urine Negative (Negative); Blood,Urine Negative (Negative); Color,Urine Light Yellow; Glucose,Urine (UA) Negative (Negative); Ketones,Urine Negative (Negative); Leukocyte Esterase,Urine Negative (Negative); Nitrite,Urine Negative (Negative); Protein,Urine Negative (Negative); Specific Gravity,Urine 1.008 (1.001-1.035); Urobilinogen,Urine <2.0 mg/dL (<2.0)
[2020-03-11 14:27] VITALS: BP 110/58; PULSE 83; RESP 16; TEMP 97.7
--- NOTE | 2020-03-12 12:35 | P.MSEPDOC ---
Presenting Problems - Arrival Data Date of Arrival on Unit: 03/11/20 Time of Arrival on Unit: 13:00 Mode of Transport: Ambulatory - Complaint OB-Reason for Admission/Chief Complaint: Pain Medical History - Information : 3 Para: 3 Term: 1 : 1 Abortions: Spontaneous or Elective: 1 Number of Living Children: 3 - Gestational Age Gestational Age by MAU (wks/days): 23 Weeks and 6 Days Review of Systems - Review of Systems Constitutional: No problems Breast: No problems ENT: No problems Cardiovascular: No problems Respiratory: No problems Gastrointestinal: No problems Genitourinary: No problems Musculoskeletal: No problems Neurological: No problems Skin: No problems Vital Signs - Temperature Temperature: 97.7 F Temperature Source: Temporal Artery Scan - Pulse Pulse Oximetery Pulse Rate: 83 Pulse Assessment Method: Pulse Oximetry - Respirations Respiratory Rate: 16 O2 Sat by Pulse Oximetry: 95 - Blood Pressure Right Arm Sitting Blood Pressure: 110/58 Blood Pressure Mean: 75 Blood Pressure Source: Automatic Cuff Medical Screen Scoring (Pre) - Cervical Exam Dilation: 0 cm = 0 Membranes: Intact - Uterine Contractions Frequency: N/A Duration: N/A Intensity: N/A - Maternal Vital Signs Maternal Temperature: N/A Maternal Blood Pressure: N/A Signs of Preeclampsia: N/A Maternal Respirations: N/A - Maternal Trauma Maternal Trauma: N/A - Assessment - Baby A Baseline FHR: 150 Heart Rate - NICHD Category: Category I (Normal) = 0 Position: N/A Station: N/A - Total Score - Baby A Total Score - Baby A: 0 - Total Score - Baby B Total Score - Baby B: 0 - Total Score - Baby C Total Score - Baby C: 0 - Level of Risk - Baby A Level of Risk - Baby A: Low (0-5) - Level of Risk - Baby B Level of Risk - Baby B: Low (0-5) - Level of Risk - Baby C Level of Risk - Baby C: Low (0-5) Physician Notification (Pre) - Physician Notified Physician Notified Date: 03/11/20 Physician Notified Time: 13:25 New Order Received: Yes Disposition - Disposition OB Disposition: Discharge to home, Written follow up instructions reviewed Discharge Date: 03/11/20 Discharge Time: 14:15 I agree with the RN Medical Screening Exam: Yes Risk & Benefit of care provided described in d/c instruction: Yes Diagnosis: RELATED CONDITIONS, UNSPECIFIED, SECOND TRIMESTER
== END 2020-03-11 14:15 | disposition home or self-care (01) ==
LOC: FBPOP 12:52
PROVIDERS: ATTEND Obstetrics & Gynecology
DX: O26.92 Pregnancy related conditions, unspecified, second trimester (principal); Z3A.23 23 weeks gestation of pregnancy
CPT/HCPCS: 81003; 99213

== ENCOUNTER 2020-04-27 07:15 | Outpatient (CLI) | payer BC ==
[2020-04-27 08:29] VITALS: BP 104/62; PULSE 80; RESP 15; TEMP 96.6
--- NOTE | 2020-06-05 10:03 | P.MSEPDOC ---
Presenting Problems - Arrival Data Date of Arrival on Unit: 04/27/20 Time of Arrival on Unit: 07:15 Mode of Transport: Ambulatory - Complaint OB-Reason for Admission/Chief Complaint: Possible Onset of Labor Comment: Pt states she started feeling contractions this morning around 0400, that they vary in frequency, and she rates them a 5/10. Medical History - Information : 4 Para: 3 Term: 1 : 1 Abortions: Spontaneous or Elective: 1 Number of Living Children: 3 - Gestational Age Gestational Age by MAU (wks/days): 30 Weeks and 4 Days - History Complications: Prior , Prior Review of Systems - Review of Systems Constitutional: No problems Breast: No problems ENT: No problems Cardiovascular: No problems Respiratory: No problems Gastrointestinal: No problems Genitourinary: No problems Musculoskeletal: No problems Neurological: No problems Skin: No problems Vital Signs - Temperature Temperature: 96.6 F Temperature Source: Temporal Artery Scan - Pulse Pulse Oximetery Pulse Rate: 80 Pulse Assessment Method: Pulse Oximetry - Respirations Respiratory Rate: 15 Oxygen Delivery Method: Room Air O2 Sat by Pulse Oximetry: 97 - Blood Pressure Right Arm Blood Pressure: 104/62 Blood Pressure Mean: 76 Blood Pressure Source: Automatic Cuff Medical Screen Scoring (Pre) - Cervical Exam Dilation: 0 cm = 0 Effacement: Exam Deferred Membranes: Intact - Uterine Contractions Frequency: N/A Duration: N/A Intensity: N/A - Maternal Vital Signs Maternal Temperature: N/A Maternal Blood Pressure: N/A Signs of Preeclampsia: N/A Maternal Respirations: N/A - Maternal Trauma Maternal Trauma: N/A - Assessment - Baby A Baseline FHR: 130 Heart Rate - NICHD Category: Category I (Normal) = 0 NST: Reactive Position: N/A Station: N/A - Total Score - Baby A Total Score - Baby A: 0 - Total Score - Baby B Total Score - Baby B: 0 - Total Score - Baby C Total Score - Baby C: 0 - Level of Risk - Baby A Level of Risk - Baby A: Low (0-5) - Level of Risk - Baby B Level of Risk - Baby B: Low (0-5) - Level of Risk - Baby C Level of Risk - Baby C: Low (0-5) Physician Notification (Pre) - Physician Notified Physician Notified Date: 04/27/20 Physician Notified Time: 08:05 New Order Received: Yes Disposition - Disposition OB Disposition: Discharge to home Discharge Date: 04/27/20 Discharge Time: 08:18 I agree with the RN Medical Screening Exam: Yes Risk & Benefit of care provided described in d/c instruction: Yes Diagnosis: FALSE LABOR BEFORE 37 COMPLETED WEEKS OF GEST, THIRD TRI
== END 2020-04-27 08:31 | disposition home or self-care (01) ==
LOC: FBPOP 07:15
PROVIDERS: ATTEND Obstetrics & Gynecology
DX: O47.03 False labor before 37 completed weeks of gestation, third trimester (principal); Z3A.30 30 weeks gestation of pregnancy
CPT/HCPCS: 59025; 99213

== ENCOUNTER 2020-06-06 22:59 | Outpatient (CLI) | payer BC ==
[2020-06-07 01:09] VITALS: BP 135/63; PULSE 93; RESP 16; TEMP 96.7
--- NOTE | 2020-06-08 16:45 | P.MSEPDOC ---
Presenting Problems - Arrival Data Date of Arrival on Unit: 06/06/20 Time of Arrival on Unit: 22:59 Mode of Transport: Ambulatory - Complaint OB-Reason for Admission/Chief Complaint: Possible Onset of Labor Comment: contractions 20 mins apart since 1829 Medical History - Information : 4 Para: 3 Term: 1 : 2 Abortions: Spontaneous or Elective: 1 Number of Living Children: 3 - Gestational Age Gestational Age by MAU (wks/days): 36 Weeks and 3 Days - History Complications: Prior Review of Systems - Review of Systems Constitutional: No problems Breast: No problems ENT: No problems Cardiovascular: No problems Respiratory: No problems Gastrointestinal: No problems Genitourinary: No problems Musculoskeletal: No problems Neurological: No problems Skin: No problems Vital Signs - Temperature Temperature: 96.7 F Temperature Source: Temporal Artery Scan - Pulse Pulse Oximetery Pulse Rate: 93 Pulse Assessment Method: Pulse Oximetry - Respirations Respiratory Rate: 16 Oxygen Delivery Method: Room Air O2 Sat by Pulse Oximetry: 97 - Blood Pressure Right Arm Blood Pressure: 135/63 Blood Pressure Mean: 87 Blood Pressure Source: Automatic Cuff Medical Screen Scoring (Pre) - Cervical Exam Dilation: 0 cm = 0 Effacement: Exam Deferred Membranes: Intact - Uterine Contractions Frequency: > 5 minutes apart = 1 Duration: > 40 seconds = 2 Intensity: N/A - Maternal Vital Signs Maternal Temperature: N/A Signs of Preeclampsia: N/A Maternal Respirations: N/A - Maternal Trauma Maternal Trauma: N/A - Assessment - Baby A Baseline FHR: 120 Heart Rate - NICHD Category: Category I (Normal) = 0 NST: Reactive Position: N/A Station: N/A - Total Score - Baby A Total Score - Baby A: 3 - Total Score - Baby B Total Score - Baby B: 3 - Total Score - Baby C Total Score - Baby C: 3 - Level of Risk - Baby A Level of Risk - Baby A: Low (0-5) - Level of Risk - Baby B Level of Risk - Baby B: Low (0-5) - Level of Risk - Baby C Level of Risk - Baby C: Low (0-5) Physician Notification (Pre) - Physician Notified Physician Notified Date: 06/07/20 Physician Notified Time: 00:30 New Order Received: Yes - Notification Comment Comment: Dr. Heredia called, report given on maternal and status. Pt complaints of. contractions since 1830. Contractions 5-8mins with irritability in between, SVE. fingertip/thick/high, NST reactive. Pt rates pain 6/10 and gr imaces and holds her. abdomen with contractions but can still talk. Orders to discharge pt home with. instructions to rest and hydrate and monitor for increasing contractions. Disposition - Disposition OB Disposition: Discharge to home Discharge Date: 06/07/20 Discharge Time: 00:37 I agree with the RN Medical Screening Exam: Yes Risk & Benefit of care provided described in d/c instruction: Yes Diagnosis: FALSE LABOR BEFORE 37 COMPLETED WEEKS OF GEST, THIRD TRI
== END 2020-06-07 00:37 | disposition home or self-care (01) ==
LOC: FBPOP 22:59
PROVIDERS: ATTEND Obstetrics & Gynecology
DX: O47.03 False labor before 37 completed weeks of gestation, third trimester (principal); Z3A.36 36 weeks gestation of pregnancy
CPT/HCPCS: 59025; 99213

== ENCOUNTER 2020-06-12 18:46 | Outpatient (CLI) | payer BC ==
[2020-06-12 20:49] VITALS: BP 112/64; PULSE 91; RESP 16; TEMP 97.5
--- NOTE | 2020-06-15 12:37 | P.MSEPDOC ---
Presenting Problems - Arrival Data Date of Arrival on Unit: 06/12/20 Time of Arrival on Unit: 18:45 Mode of Transport: Ambulatory - Complaint OB-Reason for Admission/Chief Complaint: Possible Onset of Labor Comment: Patient presents to triage with contractions for the past couple of hours about 5 minutes apart. States that yesterday she noted some leaking, saturating a pad yesterday, but nothing today. Patient states that she did have intercourse at around 0800 this am. Medical History - Information : 3 Para: 3 Term: 1 : 2 Abortions: Spontaneous or Elective: 0 Number of Living Children: 3 - Gestational Age Gestational Age by MAU (wks/days): 37 Weeks and 1 Days - History Complications: Prior Comment: First delivery was 34 week twins Review of Systems - Review of Systems Constitutional: No problems Breast: No problems ENT: No problems Cardiovascular: No problems Respiratory: No problems Gastrointestinal: No problems Genitourinary: No problems Musculoskeletal: No problems Neurological: No problems Skin: No problems Vital Signs - Temperature Temperature: 97.5 F Temperature Source: Temporal Artery Scan - Pulse Pulse Oximetery Pulse Rate: 91 Pulse Assessment Method: Automatic Cuff - Respirations Respiratory Rate: 16 Oxygen Delivery Method: Room Air - Blood Pressure Sitting Blood Pressure: 112/64 Blood Pressure Mean: 80 Blood Pressure Source: Automatic Cuff Medical Screen Scoring (Pre) - Cervical Exam Dilation: 1-3 cm = 1 Effacement: More than 50% = 2 Membranes: Intact - Uterine Contractions Frequency: > 5 minutes apart = 1 Duration: > 40 seconds = 2 Intensity: N/A - Maternal Vital Signs Maternal Temperature: N/A Maternal Blood Pressure: N/A Signs of Preeclampsia: N/A Maternal Respirations: N/A - Maternal Trauma Maternal Trauma: N/A - Assessment - Baby A Baseline FHR: 140 Heart Rate - NICHD Category: Category I (Normal) = 0 NST: Reactive Position: N/A Station: N/A - Total Score - Baby A Total Score - Baby A: 6 - Total Score - Baby B Total Score - Baby B: 6 - Total Score - Baby C Total Score - Baby C: 6 - Level of Risk - Baby A Level of Risk - Baby A: Medium (6-9) - Level of Risk - Baby B Level of Risk - Baby B: Medium (6-9) - Level of Risk - Baby C Level of Risk - Baby C: Medium (6-9) Physician Notification (Pre) - Physician Notified Physician Notified Date: 06/12/20 Physician Notified Time: :16 New Order Received: Yes - Notification Comment Comment: Orders given to discharge Patient home with instructions, patient to follow up with Dr. Perry Friday 06/15. Disposition - Disposition OB Disposition: Discharge to home, Written follow up instructions reviewed Discharge Date: 06/12/20 Discharge Time: :23 I agree with the RN Medical Screening Exam: Yes Risk & Benefit of care provided described in d/c instruction: Yes Diagnosis: FALSE LABOR AT OR AFTER 37 COMPLETED WEEKS OF GESTATION
== END 2020-06-12 20:23 | disposition home or self-care (01) ==
LOC: FBPOP 18:46
PROVIDERS: ATTEND Obstetrics & Gynecology
DX: O47.1 False labor at or after 37 completed weeks of gestation (principal); Z3A.37 37 weeks gestation of pregnancy
CPT/HCPCS: 59025; 84112; 99213

== ENCOUNTER 2020-06-27 10:03 | Inpatient (IN) | payer BC ==
[2020-06-24 10:46] VITALS: BMI 36.7
[2020-06-27] MEDS ORDERED: LACTATED RINGERS 1,000 ML IV ONE (10:20)
[2020-06-27] MEDS ORDERED: CITRIC ACID-SODIUM CITRATE 15 ML CUP PO ONE (10:20)
[2020-06-27] MEDS ORDERED: LACTATED RINGERS 1,000 ML IV SCH ×2 (10:30→13:30)
[2020-06-27 10:48] LABS: Basophils % (A) 0 %; Eosinophils # (A) 0.1 k/uL (0-0.7); Eosinophils % (A) 1 %; HCT 41.5 % (34.0-46.0); HGB 13.6 gm/dL (11.4-16.0); Lymphocytes # (A) 1.8 k/uL (1.0-4.8); Lymphocytes % (A) 16 %; MCH 29.2 pg (25.0-35.0); MCHC 32.8 g/dL (31.0-37.0); MCV 89.2 fL (80.0-100.0); Mean Platelet Volume 6.8; Monocytes # (A) 0.6 k/uL (0-1.0); Monocytes % (A) 5 %; Neutrophils # (A) 8.4 k/uL (1.3-7.7); Neutrophils % (A) 76 %; Platelet Count 380 k/uL (150-450); RBC 4.66 m/uL (3.80-5.40); RDW 13.6 % (11.5-15.5); WBC 11.1 k/uL (3.8-10.6)
[2020-06-27] MEDS ORDERED: ePHEDrine SULFATE/0.9% NACL/PF 50 MG/5 ML SYRINGE IV ONE (11:58)
[2020-06-27] MEDS ORDERED: ONDANSETRON 4 MG/2 ML VIAL ONE (11:58)
[2020-06-27] MEDS ORDERED: NALBUPHINE 10 MG/ML (1 ML AMP) ONE (11:58)
[2020-06-27] MEDS ORDERED: KETOROLAC 15 MG/ML 1 ML VIAL ONE (11:58)
[2020-06-27] MEDS ORDERED: MORPHINE SULFATE (PF) 0.3 MG/0.3 ML SYR ONE (11:58)
[2020-06-27] MEDS ORDERED: OXYTOCIN 10 UNIT/ML 1 ML VIAL ONE (11:58)
[2020-06-27] MEDS ORDERED: ZOLPIDEM 5 MG TAB PO PRN (13:16)
[2020-06-27] MEDS ORDERED: SIMETHICONE 80 MG CHEWABLE PO PRN (13:16)
[2020-06-27] MEDS ORDERED: MEASLES-MUMPS-RUBELLA VACC/PF 12,500 UNIT/0.5 ML VIAL SQ ONE (13:16)
[2020-06-27] MEDS ORDERED: diphenhydrAMINE 25 MG CAP PO PRN (13:16)
[2020-06-27] MEDS ORDERED: ACETAMINOPHEN TAB 325 MG TAB PO PRN (13:16)
[2020-06-27] MEDS ORDERED: METOCLOPRAMIDE 5 MG/ML 2 ML VIAL IVP PRN (13:16)
[2020-06-27] MEDS ORDERED: ONDANSETRON 4 MG/2 ML VIAL IVP PRN (13:16)
[2020-06-27] MEDS ORDERED: diphenhydrAMINE 50 MG/ML 1 ML VIAL IVP PRN ×2 (13:16)
[2020-06-27] MEDS ORDERED: diphenhydrAMINE 50 MG CAP PO PRN (13:16)
[2020-06-27] MEDS ORDERED: KETOROLAC 15 MG/ML 1 ML VIAL IVP PRN (13:16)
--- NOTE | 2020-06-27 13:24 | P.HPOB ---
History of Present Illness H&P Date: 06/27/20 Chief Complaint: February at term: Prior section: Family planning Wendi is a 35-year-old G 4P2 with 1 set of twins at 39 weeks gestation was set prior sections and she is scheduled for same with bilateral tubal occlusion with Filshie clips. Risks/benefits/alternatives to this procedure were discussed with the patient in detail and all questions were answered for her prior to proceeding to the operating room. She understands the tube ligation site be permanent and is not signed her first but does have a failure rate of approximately between 2 and 6 per thousand. Her course was generally unremarkable. She did see maternal medicine for advanced maternal age but otherwise she has done very well with the and is d oing well at this time. Category 1 tracing is noted and she is not having any contractions this time. Past Medical History Past Medical History: GERD/Reflux Additional Past Medical History / Comment(s): occ migraines, irregular heart rate-saw tube backer and nothing found, SEASONAL ALLERGIES, History of Any Multi-Drug Resistant Organisms: None Reported Past Surgical History: Section, Cholecystectomy Additional Past Surgical History / Comment(s): c/s x 2 Past Anesthesia/Blood Transfusion Reactions: Family History of Problems w/ Anesthesia, Motion Sickness, Postoperative Nausea & Vomiting (PONV) Additional Past Anesthesia/Blood Transfusion Reaction / Comment(s): grandmother had issues with anesthesia pt unaware of what occured, pt severe PONV after gallbladder surgery Past Psychological History: Anxiety Additional Psychological History / Comment(s): Mood swings with Smoking Status: Former smoker Past Alcohol Use History: None Reported Additional Past Alcohol Use History / Comment(s): smoker 7 years 1/2ppd, quit smoking 9 months ago Past Drug Use History: None Reported - Past Family History Mother Family Medical History: No Reported History Medications and Allergies Home Medications Medication Instructions Recorded Confirmed Type Cetirizine HCl [Zyrtec] 10 mg PO DAILY 12/24/17 06/27/20 History Pnv No.95/Ferrous Fum/Folic AC 1 each PO DAILY 03/11/20 06/27/20 History [ Multivitamin Tablet] Allergies Allergy/AdvReac Type Severity Reaction Status Date / Time Penicillins Allergy Rash/Hives Verified 06/24/20 10:38 Exam Osteopathic Statement: *. No significant issues noted on an osteopathic structural exam other than those noted in the History and Physical/Consult. Vital Signs Temp Pulse Resp BP Pulse Ox 06/27/20 13:10 92 16 106/54 98 06/27/20 12:55 100 16 111/51 99 06/27/20 12:40 97.4 F L 98 16 108/57 99 06/27/20 10:19 96.8 F L 86 16 118/68 96 Intake and Output 06/26/20 06/27/20 06/27/20 22:59 06:59 14:59 Other: Weight 97.069 kg - OBG Physical Exam Breast: both: normal (no masses) Abdomen: bowel sounds normal, no diffuse tenderness, no bruit present, no guarding noted, no hepatomegaly, no splenomegaly, no mass Vulva: both: normal Vagina: normal moisture, no discharge Cervix: no lesion, no discharge Uterus: normal size, normal contour Adnexa: both: normal Anus/Rectum: normal perianal skin, no rectal mass, no hemorrhoids, heme negative Results Result Diagrams: 06/27/20 10:25 Abnormal Lab Results - Last 24 Hours (Table) 06/27/20 Range/Units 10:25 WBC 11.1 H (3.8-10.6) k/uL Neutrophils # 8.4 H (1.3-7.7) k/uL
--- NOTE | 2020-06-27 13:28 | P.OP ---
Date of Procedure: 06/27/20 Preoperative Diagnosis: Intrauterine term: Family planning: Prior section Postoperative Diagnosis: Same Procedure(s) Performed: Repeat low transverse section with bilateral tubal occlusion Filshie clips Anesthesia: spinal Surgeon: William Perry Software Security Architect #1: Dann Prajapati Estimated Blood Loss (ml): 442 IV fluids (ml): 1,100 Urine output (ml): 300 Pathology: none sent Condition: stable Disposition: floor Operative Findings: And scores were 9 and 10 at one and 5 minutes [place] and weight was 8 lbs. 1 oz. Description of Procedure: Patient was taken to the operating suite where a spinal anesthetic was found be adequate. She was prepped and draped in the normal sterile fashion and placed in dorsal supine position with leftward tilt. Initially a Pfannenstiel skin incision was made and this incision was then carried through to the underlying layer of fascia with the second knife. Fascia was then nicked in the midline and this opening was extended laterally with Clark scissors. Superior and inferior aspect of this incision was then grasped tented up and bluntly and sharply dissected off the rectus muscles. Rectus muscles were then divided midline and blunt dissection through the peritoneum was performed. This opening was then extended superiorly and inferiorly with good visualization of both bowel bladder. Bladder blade was then placed bladder flap identified in her menstrual scissors and bluntly dissected out of the operative field. Knife was then used to incise uterus this opening was then fully developed with a hemostat and extended bluntly. Head was then H medically delivered anterior posterior shoulders were easily delivered falling reduction of a nuchal cord 1. Once baby was fully delivered mouth nares were bulb suctioned and nursery personnel was present to some care following clamping and cutting of the cord. Umbilical cord and placenta were then delivered intact Pitocin was added to the IV and uterus was then exteriorized cleared of clots and debris and closed in 1 layer with 0 Vicryl suture. Once excellent hemostasis was obtained blood and debris was suctioned the posterior cul-de-sac and fallopian tubes were clamped with Filshie clips 2 cm from uterine cornu. Uterus was then reinserted into the abdomen inspection of the incision line reveals hemostasis. Peritoneal layer was then reapproximated with 3-0 Vicryl. Fascial layer was closed with 0 Vicryl suture. One layer of 3-0 Vicryl was placed in deep subcuticular tissues reapproximate skin and close that space. Skin was then closed with 3-0 Vicryl subcuticular. Sponge, lap, needle counts were all correct 2. Patient was then taken to the recovery room in stable and satisfactory condition.
[2020-06-27] MEDS: IBUPROFEN 600 MG TAB PO PRN (18:13)
[2020-06-27] MEDS ORDERED: Rhogam IMMUNE GLOBULIN 1,500 UNIT/1 ML IM ONE (18:33)
[2020-06-28] MEDS: SENNOSIDES-DOCUSATE SODIUM 1 EACH TAB PO SCH ×3 (00:33→20:10)
[2020-06-28] MEDS: IBUPROFEN 600 MG TAB PO PRN ×2 (04:38→20:10)
[2020-06-28 06:34] LABS: Basophils % (A) 0 %; Eosinophils # (A) 0.1 k/uL (0-0.7); Eosinophils % (A) 1 %; HCT 34.1 % (34.0-46.0); HGB 11.4 gm/dL (11.4-16.0); Lymphocytes # (A) 1.6 k/uL (1.0-4.8); Lymphocytes % (A) 17 %; MCH 30.9 pg (25.0-35.0); MCHC 33.4 g/dL (31.0-37.0); MCV 92.8 fL (80.0-100.0); Mean Platelet Volume 7.1; Monocytes # (A) 0.6 k/uL (0-1.0); Monocytes % (A) 6 %; Neutrophils # (A) 7.2 k/uL (1.3-7.7); Neutrophils % (A) 75 %; Platelet Count 284 k/uL (150-450); RBC 3.67 m/uL (3.80-5.40); RDW 13.3 % (11.5-15.5); WBC 9.7 k/uL (3.8-10.6)
--- NOTE | 2020-06-28 10:18 | P.PNOBGPC ---
Subjective - Subjective Principal diagnosis: Postop day 1 Interval history: Doing very well. Involuting, voiding and tolerating a diet. Vital signs stable afebrile. Patient reports: Reports appetite normal, Reports voiding normally, Reports pain well controlled, Reports ambulating normally [place]: doing well Objective - Vital Signs Latest vital signs: Vital Signs Temp Pulse Resp BP Pulse Ox 06/28/20 08:00 98.7 F 79 16 90/54 100 06/28/20 04:00 97.7 F 77 16 108/58 06/28/20 00:00 98.3 F 69 14 104/62 98 06/27/20 20:00 98.1 F 67 16 117/63 98 06/27/20 16:00 98 F 76 16 106/54 95 06/27/20 14:40 96.4 F L 74 16 97/57 97 06/27/20 14:10 75 16 98/56 97 06/27/20 13:40 79 16 97/56 98 06/27/20 13:25 80 16 105/57 97 06/27/20 13:10 92 16 106/54 98 06/27/20 12:55 100 16 111/51 99 06/27/20 12:40 97.4 F L 98 16 108/57 99 06/27/20 10:19 96.8 F L 86 16 118/68 96 Intake and Output 06/27/20 06/28/20 06/28/20 22:59 06:59 14:59 Output Total 2250 900 400 Balance -2250 -900 -400 Output: Urine 2250 900 400 Uretheral ([place]) 1600 Other: # Voids 0 - Exam Lungs: bilateral: normal Chest: Normal S1, Normal S2 Extremities: Present: normal Abdomen: Present: normal appearance, soft. Absent: distention, tenderness Incision: Present: normal, dry, intact Uterus: Present: normal, firm - Labs Labs: Abnormal Lab Results - Last 24 Hours (Table) 06/27/20 06/28/20 Range/Units 10:25 06:05 WBC 11.1 H (3.8-10.6) k/uL RBC 3.67 L (3.80-5.40) m/uL Neutrophils # 8.4 H (1.3-7.7) k/uL
--- NOTE | 2020-06-28 11:11 | P.PN ---
Progress Note - Text 06/28/20 700am 35-year-old female status post with spinal Duramorph. Patient seen and evaluated this morning, patient has a VAS of 2, no complains of nausea vomiting. Patient did have complains of pruritus is getting better. I explained to the patient the effects of Duramorph last for 24 hours and she should feel better soon
[2020-06-28 23:30] VITALS: RESP 16
[2020-06-29] MEDS: IBUPROFEN 600 MG TAB PO PRN (03:52)
[2020-06-29 07:55] VITALS: BP 110/60; PULSE 86; TEMP 98.2
--- NOTE | 2020-06-29 08:35 | P.DS ---
Providers Date of admission: 06/27/20 10:03 Expected date of discharge: 06/29/20 Attending physician: William Perry Primary care physician: Stated None Hospital Course: Wendi is doing very well postop day 2 from a repeat section with tubal. She is ambulating, voiding, and tolerating her diet well. She voices no complaints and is requesting discharge to home today. Prescriptions for Motrin and [place] are provided. All other questions were answered for her and she is stable for discharge this time. On physical exam vital signs are stable and afebrile. Heart regular, lungs clear, extremities without pain. Abdomen soft incisions clean dry and intact and she does have bowel sounds. Assessment postop day 2. Plan discharged home follow up with me in 1 week. Patient Condition at Discharge: Good Plan - Discharge Summary Discharge Rx Participant: Yes New Discharge Prescriptions: New Ibuprofen [Motrin] 600 mg PO Q6HR PRN #30 tab PRN Reason: Pain HYDROcodone/APAP 5-325MG [[place] 5-325] 1 tab PO Q4HR PRN #30 tab PRN Reason: Pain No Action Cetirizine HCl [Zyrtec] 10 mg PO DAILY Pnv No.95/Ferrous Fum/Folic AC [ Multivitamin Tablet] 1 each PO DAILY Discharge Medication List Cetirizine HCl [Zyrtec] 10 mg PO DAILY 12/24/17 [History] Pnv No.95/Ferrous Fum/Folic AC [ Multivitamin Tablet] 1 each PO DAILY 03/11/20 [History] HYDROcodone/APAP 5-325MG [[place] 5-325] 1 tab PO Q4HR PRN #30 tab 06/29/20 [Rx] Ibuprofen [Motrin] 600 mg PO Q6HR PRN #30 tab 06/29/20 [Rx] Follow up Appointment(s)/Referral(s): William Perry DO [Doctor of Osteopathic Medicine] - 1 Week Activity/Diet/Wound Care/Special Instructions: No heavy lifting, limit stairs and driving, and pelvic rest. If any high temperatures, heavy bleeding, or severe pain call my office Discharge Disposition: HOME SELF-CARE
== END 2020-06-29 11:00 | disposition home or self-care (01) | DRG 785 ==
LOC: 4FBP 10:03
PROVIDERS: ADMIT Obstetrics & Gynecology; ATTEND Obstetrics & Gynecology
PROC: 10D00Z1 Extraction of Products of Conception, Low, Open Approach (ICD-10-PCS; principal; 2020-06-27 12:00)
PROC: 0UL70CZ Occlusion of Bilateral Fallopian Tubes with Extraluminal Device, Open Approach (ICD-10-PCS; principal; 2020-06-27 12:00)
DX: O34.211 Maternal care for low transverse scar from previous cesarean delivery (principal); Z37.0 Single live birth; Z3A.39 39 weeks gestation of pregnancy; Z87.891 Personal history of nicotine dependence; L29.9 Pruritus, unspecified; O69.81X0 Labor and delivery complicated by cord around neck, without compression, not applicable or unspecified; Z30.2 Encounter for sterilization
CPT/HCPCS: 85025; 85461; 86850; 86900; 86901; 90707